=== PATIENT | female | born 1970 | race Two or more races ===

== ENCOUNTER 2024-12-19 07:18 | Outpatient (CLI) | payer OTHER | END 2024-12-19 07:19 | disposition home or self-care (01) | LOC: NUCLEAR 07:18 | PROVIDERS: ATTEND Internal Medicine | DX: R06.02 Shortness of breath (principal) | CPT/HCPCS: 78452; 93017; A9500 ==

== ENCOUNTER 2024-12-23 09:25 | Outpatient (CLI) | payer OTHER | END 2024-12-23 09:26 | disposition home or self-care (01) | LOC: NUCLEAR 09:25 | PROVIDERS: ATTEND Internal Medicine | DX: I10 Essential (primary) hypertension (principal) ==